=== PATIENT | female | born 2000 | race African-American/Black ===

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

== ENCOUNTER 2018-03-27 17:59 | Inpatient (IN) | payer OTHER ==
[~2018-03-27] VITALS: Ht 180.3 cm; Wt 103.4 kg
--- NOTE | 2018-03-27 18:04 | ER Report ---
History and Physical Time Seen By MD: 18:03 HPI/TALON CHIEF COMPLAINT: Menstrual cycle for 1 year HISTORY OF PRESENT ILLNESS: This is a 17-year-old female who presents to the emergency department for a menstrual cycle for 1 year. Patient states that she's had a heavy menstrual cycle bleeding, every day for one year. States that in February she became somewhat lightheaded and dizzy and is progressively getting worse. Today she states that she just wants to know what is wrong, she still has the dizziness and lightheadedness. Mild loose stools, she also states she has joint pain. She states that this happened before and [employer] gave her Blaine. She denies fevers, chest pain, shortness of breath, abdominal pain. No rashes or fevers. The patient has been in the [place] for about 15 months, she is from [place] studying at the [employer] [place]. REVIEW OF SYSTEMS: Constitutional: No fever, no chills. Eyes: No discharge. ENT: No sore throat. Cardiovascular: No chest pain, no palpitations. Respiratory: No cough, no shortness of breath. Gastrointestinal: No abdominal pain, no vomiting. ERRAND RUNNER: As above. Genitourinary: No hematuria. Musculoskeletal: No back pain. Skin: No rashes. Neurological: No headache. Allergies: Coded Allergies: No Known Allergies (Verified Allergy, Unknown, 03/27/18) Home Meds No Active Prescriptions or Reported Meds Past Medical/Surgical History The patient has no significant past medical or surgical history. Reviewed Nurses Notes: Yes Constitutional Vital Sign - Last 24 Hours 03/27/18 03/27/18 03/27/18 03/27/18 17:59 18:13 18:24 18:29 Temp 97.9 Pulse 108 101 102 Resp 13 B/P (MAP) 135/75 (95) 135/75 Pulse Ox 97 96 97 O2 Delivery Room Air Room Air Room Air 03/27/18 03/27/18 03/27/18 03/27/18 18:30 18:59 19:00 19:05 Pulse 99 98 B/P (MAP) 114/74 (87) 110/71 (84) Pulse Ox 95 96 O2 Delivery Room Air 03/27/18 03/27/18 03/27/18 19:35 20:00 20:05 Pulse 102 95 B/P (MAP) 101/73 (82) Pulse Ox 95 97 Physical Exam General Appearance: The patient is alert, has no immediate need for airway protection and no signs of toxicity. Eyes: Pupils equal and round, pale conjunctiva, no injection. ENT, Mouth: Mucous membranes are moist. Respiratory: There are no retractions, lungs are clear to auscultation. Cardiovascular: Regular rate and rhythm, no murmurs, clicks or rubs. Gastrointestinal: Abdomen is soft and non tender, no masses, bowel sounds normal. Neurological: Alert and oriented 4. Moving all extremities. Following all commands. No focal neuro deficits. Skin: Warm and dry, no rashes. Musculoskeletal: Neck is supple non tender. Extremities are nontender, nonswollen and have full range of motion. DIFFERENTIAL DIAGNOSIS: After history and physical exam differential diagnosis was considered for sickle cell disease, polycythemia, abdominal pain in a female including but not limited to ovarian cyst, pelvic inflammatory disease, ovarian torsion, urinary tract infection, and appendicitis. Medical Decision Making Data Points Result Diagram: 03/27/18 1849 03/27/18 1849 Laboratory Hematology Test 03/27/18 18:03 03/27/18 18:49 Urine Color Yellow Urine Clarity Clear Urine pH 6.0 pH (4.8-9.5) Urine Specific [place] 1.025 Urine Protein Negative mg/dL (NEGATIVE) Urine Glucose (UA) Negative mg/dL (NEGATIVE) Urine Ketones Negative mg/dL (NEGATIVE) Urine Blood Moderate (NEGATIVE) Urine Nitrite Negative (NEGATIVE) Urine Bilirubin Negative (NEGATIVE) Urine Urobilinogen 4.0 mg/dL (0.2-1.9) Urine Leukocyte Esterase Negative (NEGATIVE) Urine RBC 8 /HPF (0-2/HPF) Urine WBC 1 /HPF (0-5/HPF) Urine Squamous Epithelial Cells Many /LPF (</=FEW) Urine Bacteria Negative /HPF (NONE-FEW) Urine Mucus Few /HPF (NONE-FEW) Red Blood Count 2.77 M/uL (4.17-5.56) Mean Corpuscular Volume 60.8 fL (80.0-96.0) Mean Corpuscular Hemoglobin 18.2 pg (26.0-33.0) Mean Corpuscular Hemoglobin Concent 30.0 g/dL (32.0-36.0) Red Cell Distribution Width 19.9 % (11.5-14.5) Mean Platelet Volume 8.5 fL (7.2-11.1) Neutrophils (%) (Auto) 60.7 % (39.4-72.5) Lymphocytes (%) (Auto) 29.1 % (17.6-49.6) Monocytes (%) (Auto) 8.2 % (4.1-12.4) Eosinophils (%) (Auto) 0.9 % (0.4-6.7) Basophils (%) (Auto) 1.1 % (0.3-1.4) Nucleated RBC Relative Count (auto) 0.1 /100WBC Neutrophils # (Auto) 4.0 K/uL (2.0-7.4) Lymphocytes # (Auto) 1.9 K/uL (1.3-3.6) Monocytes # (Auto) 0.5 K/uL (0.3-1.0) Eosinophils # (Auto) 0.1 K/uL (0.0-0.5) Basophils # (Auto) 0.1 K/uL (0.0-0.1) Nucleated RBC Absolute Count (auto) 0.01 K/uL Peripheral Blood Smear Yes Y/N Sodium Level 137 mmol/L (137-145) Potassium Level 3.9 mmol/L (3.5-5.0) Chloride Level 111 mmol/L (98-107) Carbon Dioxide Level 20 mmol/L (22-31) Blood Urea Nitrogen 15 mg/dl (7-18) Creatinine 0.80 mg/dl (0.52-1.04) Glomerular Filtration Rate Calc > 60.0 Random Glucose 112 mg/dl (75-110) Calcium Level 8.8 mg/dl (8.4-10.2) Total Bilirubin 0.3 mg/dl (0.2-1.3) Aspartate Amino Transf (AST/SGOT) 27 U/L (0-35) Alanine Aminotransferase (ALT/SGPT) 24 U/L (0-56) Alkaline Phosphatase 60 U/L (0-126) Total Protein 7.1 g/dl (6.3-8.2) Albumin 4.1 g/dl (3.5-5.0) Human Chorionic Gonadotropin, Qual Negative (NEGATIVE) Chemistry Test 03/27/18 18:03 03/27/18 18:49 Urine Color Yellow Urine Clarity Clear Urine pH 6.0 pH (4.8-9.5) Urine Specific [place] 1.025 Urine Protein Negative mg/dL (NEGATIVE) Urine Glucose (UA) Negative mg/dL (NEGATIVE) Urine Ketones Negative mg/dL (NEGATIVE) Urine Blood Moderate (NEGATIVE) Urine Nitrite Negative (NEGATIVE) Urine Bilirubin Negative (NEGATIVE) Urine Urobilinogen 4.0 mg/dL (0.2-1.9) Urine Leukocyte Esterase Negative (NEGATIVE) Urine RBC 8 /HPF (0-2/HPF) Urine WBC 1 /HPF (0-5/HPF) Urine Squamous Epithelial Cells Many /LPF (</=FEW) Urine Bacteria Negative /HPF (NONE-FEW) Urine Mucus Few /HPF (NONE-FEW) White Blood Count 6.6 k/uL (4.5-11.0) Red Blood Count 2.77 M/uL (4.17-5.56) Hemoglobin 5.0 g/dL (12.0-16.0) Hematocrit 16.8 % (34.0-47.0) Mean Corpuscular Volume 60.8 fL (80.0-96.0) Mean Corpuscular Hemoglobin 18.2 pg (26.0-33.0) Mean Corpuscular Hemoglobin Concent 30.0 g/dL (32.0-36.0) Red Cell Distribution Width 19.9 % (11.5-14.5) Platelet Count 439 K/uL (150-450) Mean Platelet Volume 8.5 fL (7.2-11.1) Neutrophils (%) (Auto) 60.7 % (39.4-72.5) Lymphocytes (%) (Auto) 29.1 % (17.6-49.6) Monocytes (%) (Auto) 8.2 % (4.1-12.4) Eosinophils (%) (Auto) 0.9 % (0.4-6.7) Basophils (%) (Auto) 1.1 % (0.3-1.4) Nucleated RBC Relative Count (auto) 0.1 /100WBC Neutrophils # (Auto) 4.0 K/uL (2.0-7.4) Lymphocytes # (Auto) 1.9 K/uL (1.3-3.6) Monocytes # (Auto) 0.5 K/uL (0.3-1.0) Eosinophils # (Auto) 0.1 K/uL (0.0-0.5) Basophils # (Auto) 0.1 K/uL (0.0-0.1) Nucleated RBC Absolute Count (auto) 0.01 K/uL Peripheral Blood Smear Yes Y/N Glomerular Filtration Rate Calc > 60.0 Calcium Level 8.8 mg/dl (8.4-10.2) Total Bilirubin 0.3 mg/dl (0.2-1.3) Aspartate Amino Transf (AST/SGOT) 27 U/L (0-35) Alanine Aminotransferase (ALT/SGPT) 24 U/L (0-56) Alkaline Phosphatase 60 U/L (0-126) Total Protein 7.1 g/dl (6.3-8.2) Albumin 4.1 g/dl (3.5-5.0) Human Chorionic Gonadotropin, Qual Negative (NEGATIVE) Urinalysis Test 03/27/18 18:03 Urine Color Yellow Urine Clarity Clear Urine pH 6.0 pH (4.8-9.5) Urine Specific [place] 1.025 Urine Protein Negative mg/dL (NEGATIVE) Urine Glucose (UA) Negative mg/dL (NEGATIVE) Urine Ketones Negative mg/dL (NEGATIVE) Urine Blood Moderate (NEGATIVE) Urine Nitrite Negative (NEGATIVE) Urine Bilirubin Negative (NEGATIVE) Urine Urobilinogen 4.0 mg/dL (0.2-1.9) Urine Leukocyte Esterase Negative (NEGATIVE) Urine RBC 8 /HPF (0-2/HPF) Urine WBC 1 /HPF (0-5/HPF) Urine Squamous Epithelial Cells Many /LPF (</=FEW) Urine Bacteria Negative /HPF (NONE-FEW) Urine Mucus Few /HPF (NONE-FEW) EKG/Imaging EKG Interpretation 12 lead EKG: Time of EKG 1826. Rhythm: Sinus tachycardia, ventricular rate 102 bpm. Winfred: normal QRS: normal ST segments: No ST depression or elevation identified. ED Course/Re-evaluation Clinical Indication for ER IV: Hydration, IV Access ED Course The patient was admitted to room. A history and physical obtained. Differential diagnoses were considered. An IV was started. A CBC, CMP and UA were collected. EKG showing sinus tachycardia. A 1 L normal saline bolus was given. CBC showing RBC is 2.77, hemoglobin and hematocrit 5.0 and 16.8, MCV 60.8, MCH 18.2, chemistry unremarkable, negative hCG, unremarkable UA. I did review the critical hemoglobin and hematocrit results with the patient, as the patient is seemingly more symptomatic, when I washed her walk from the bathroom to the gurney she seemed unsteady, I did ultimately make the recommendation of a hospital admission. The patient was typed and screened. Dr. Cornelio Johnson did come and evaluate the patient, the patient is agreeable to an admission. Patient will be admitted to the medical floor for anemia of chronic blood loss, I did tell her I'm also concerned about sickle cell disease, they will were kind differentiating once she is admitted. 03/27/2018 7:37:27 pm I did speak with Dr. Johnson, the hospitalist consumer loan underwriter regarding the patient's case, he will be coming down to speak with patient about a possible admission. 03/27/2018 8:50:[address] Katlin Johnson has accepted the patient into the hospitalist services. Decision to Disposition Date: Mar 27, 2018 Decision to Disposition Time: 20:36 Depart Departure Latest Vital Signs Vital Signs Date Time Temp Pulse Resp B/P (MAP) Pulse Ox O2 Delivery O2 Flow Rate FiO2 03/27/18 20:05 95 97 03/27/18 20:00 101/73 (82) 03/27/18 18:59 Room Air 03/27/18 18:24 97.9 13 Impression: Primary Impression: Anemia Condition: Improved Disposition: Admitted from ER New Scripts No Active Prescriptions or Reported Meds Problem Qualifiers Primary Impression: Anemia Anemia type: iron deficiency Iron deficiency anemia type: chronic blood loss Qualified Codes: D50.0 - Iron deficiency anemia secondary to blood loss (chronic) WAYNE BONILLA-BC Mar 27, 2018 18:04
[2018-03-27] MEDS ORDERED: NS(*) 0.9% 1000 ML BAG 1,000 ML IV ONE (18:20)
--- NOTE | 2018-03-27 18:51 | EKG ---
[place] [facility] [place] NAME: BRUNO PRITCHARDGBU : [id number] MR: [id number] V: [id number] EXAM DATE: ORDERING PHYSICIAN: WAYNE BONILLA TECHNOLOGIST: LIZETTE Test Reason : LIGHT HEADEDNESS Blood Pressure : / mmHG Vent. Rate : 102 BPM Atrial Rate : 102 BPM P-R Int : 184 ms QRS Dur : 072 ms QT Int : 364 ms P-R-T Axes : 056 043 058 degrees QTc Int : 474 ms Sinus tachycardia Otherwise normal ECG No previous ECGs available Confirmed by KORINA ORTIZ ([id number]) on 03/28/2018 6:51:13 AM Referred By: MARIZOL Confirmed By:KORINA ORTIZ
[2018-03-27 19:01] LABS: PLATELET COUNT, AUTOMATED 439 K/uL (150-450)
[2018-03-27] MEDS ORDERED: ACETAMINOPHEN 325 MG TAB PO ONE (19:50)
[2018-03-27 21:04] VITALS: BP 112/67
--- NOTE | 2018-03-27 21:21 | History & Physical ---
History of Present Illness History of Present Illness 17yo nulliparous female with a h/o iron deficiency and heavy menses who was told to go to the ER by her parents for lightheadedness and dizziness. In 2017, she was told that she was iron deficient. She was having heavy menses then. She was given some hormones, that stopped her menses for quite awhile. She took evening primrose which restarted her menses over a month ago. She then started having menses daily. She took evening primrose again and the menses became heavier. She has continued to have menses daily, which now require 9-12 pads/day. She has been getting lightheaded with standing and sometimes falling to the ground. She denies LOC. She reports frequent, loose, BM for almost two months. Possibly having up to 6 BM/day. She has some intermittent nausea/mild leg swelling bilaterally/wrist and ankle pain bilaterally. She denies abdominal pain. She denies a h/o sickle cell or thallesemia. She denies recent NSAIDs or supplements use. Her mother has diabetes. Her siblings have no major medical problems. History Problems: (1) Anemia Status: Acute Home Meds No Active Prescriptions or Reported Meds Allergies: Coded Allergies: No Known Allergies (Verified Allergy, Unknown, 03/27/18) Other Social/Family Hx She is a biology student at . She is from [place] and has been in [place] since 2017. No tobacco use. She drinks alcohol on weekends, occasionally. Hx Alcohol Use: No Review of Systems All Systems Reviewed/Normal: Yes, Except as Noted Exam Vital Signs Vital Signs Date Time Temp Pulse Resp B/P (MAP) Pulse Ox O2 Delivery O2 Flow Rate FiO2 03/27/18 20:30 111/78 (89) 03/27/18 20:10 93 97 03/27/18 18:59 Room Air 03/27/18 18:24 97.9 13 General Appearance: Alert, Awake, No Acute Distress Cardiovascular: Regular Rate and Rhythm Respiratory: Clear to Auscultation GI: Abd Soft and Non-Tender (No hepatosplenomegally) : Other (Defer exam until a female nurse is available.) Musculoskeletal: Other (No wrist/ankle swelling or pain with palpation/passive ROM.) Extremities: No Edema Medical Decision Making Data Points Result Diagram: 03/27/18184803/27/181848 Item Value Date Time Mean Corpuscular Volume 60.8 fL L 03/27/181848 Red Cell Distribution Width 19.9 % H 03/27/181848 Neutrophils (%) (Auto) 60.7 % 03/27/181848 Lymphocytes (%) (Auto) 29.1 % 03/27/181848 Monocytes (%) (Auto) 8.2 % 03/27/181848 Human Chorionic Gonadotropin, Qual Negative 03/27/181848 Total Bilirubin 0.3 mg/dl 03/27/18 184 Aspartate Amino Transf (AST/SGOT) 27 U/L 03/27/18 184 Alanine Aminotransferase (ALT/SGPT) 24 U/L 03/27/18 184 Alkaline Phosphatase 60 U/L 03/27/18 184 Urine Urobilinogen 4.0 mg/dL H 03/27/18 1803 Urine Leukocyte Esterase Negative 03/27/18 1803 Urine RBC 8 /HPF 03/27/18 1803 Urine WBC 1 /HPF 03/27/18 1803 Urine Blood Moderate 03/27/18 1803 Urine Squamous Epithelial Cells Many /LPF H 03/27/18 1803 Urine Bacteria Negative /HPF 03/27/18 1803 Urine Mucus Few /HPF 03/27/18 1803 Assessment and Plan Problems: (1) Microcytic anemia Status: Acute Assessment & Plan: She presented with daily menses requiring 9-12 pads/day and near syncope with standing for about a month. Her heart rate is in the 90's to low 100's. BP is wnl. Hgb is 5. She denies any h/o sickle cell disease or thalassemia. Dr. Bender recommended starting Provera 10mg a day for a 30 days and follow up with Gynecology in 1-2 weeks. She will be transfused 2 units of PRBC, started on Provera, and have iron studies/reticulocyte count/ferritin/B12/folate/LDH/haptoglobin/occult blood in stool checked. Will do a superficial vaginal exam when there is a female nurse available. Venous Thromboembolism Antithrombotics Is Pt On Any Antithrombotics?: No Exam Sepsis Risk: Possible Sepsis Risk KORINA ORTIZ MD Mar 27, 2018 21:21
[2018-03-27] MEDS ORDERED: [UNRECOGNIZED DRUG - CODE] PO (22:03)
[2018-03-27] MEDS: medroxyPROGES ACE 10 MG TAB PO SCH (22:06)
[2018-03-27 22:31] VITALS: BP 103/71
[2018-03-27] MEDS: NS(*) 0.9% 1000 ML BAG 1,000 ML IV PRN (22:42)
[2018-03-27 22:50] VITALS: BP 109/64
[2018-03-27] MEDS: ACETAMINOPHEN 500 MG TAB PO PRN (23:01)
[2018-03-28] VITALS (11 sets, daily range): BP systolic 94–121; BP diastolic 52–84; Ht 180.3 cm; Wt 103.4 kg
--- NOTE | 2018-03-28 02:37 | NUR ---
2 units PRBCs infused. Pt. tolerated procedure well. VS stable. No s/s of distress or allergic reactions observed or voiced. Call light within reach. Will continue to monitor.
[2018-03-28 06:03] LABS: PLATELET COUNT, AUTOMATED 387 K/uL (150-450)
[2018-03-28 09:41] LABS: INR 1.01
[2018-03-28] MEDS: ACETAMINOPHEN 500 MG TAB PO PRN (09:57)
[2018-03-28] MEDS: FERROUS SULFATE 325 MG TAB PO SCH ×2 (09:58→17:14)
[2018-03-28] MEDS ORDERED: ACETAMINOPHEN 325 MG TAB PO PRN (10:05)
[2018-03-28] MEDS ORDERED: PROCHLORPERAZINE MAL 5 MG TAB PO PRN (10:10)
--- NOTE | 2018-03-28 11:03 | Hospitalist Progress Note ---
Subjective Progress Notes Subjective She was admitted with Microcytic anemia. She reports some improvement in vaginal bleeding this morning. She does have headache and nausea. Patient Complains of: Cardiovascular: No: Chest Pain Respiratory: Cough; No: Shortness of Breath Gastrointestinal: Nausea Physical Exam Vital Signs Date Time Temp Pulse Resp B/P (MAP) Pulse Ox O2 Delivery O2 Flow Rate FiO2 03/28/18 08:51 97 03/28/18 08:51 98.4 92 16 113/66 (82) Room Air Intake and Output 03/28/18 00:00 Intake Total 1000 ml Balance 1000 ml IV Total 1000 ml # Voids 1 General Appearance: Alert, Awake, No Acute Distress, Afebrile Neuro: No Gross deficits Cardiovascular: Regular Rate and Rhythm Respiratory: No Respiratory Distress, Clear to Auscultation GI: Soft and Non-Tender Extremities: Warm, Perfused; No Edema Psych: Alert & Oriented X3, Appropriate Mood & Affect Result Diagram: 03/28/18 0839 03/28/18 0540 Assessment and Plan Problems: (1) Microcytic anemia Status: Acute Assessment & Plan: She presented with daily menses requiring 9-12 pads/day and near syncope with standing for about a month. Hgb was 5 at admission. She veronica es any h/o sickle cell disease or thalassemia. Dr. Bender recommended starting Provera 10mg a day for a 30 days and follow up with Gynecology in 1-2 weeks. She was transfused 2 units of PRBC upon admission, started on Provera, and have iron studies/reticulocyte count/ferritin/B12/folate/LDH/haptoglobin/occult blood in stool checked. Her Hgb is 6.6 this morning. She will be transfused another un it of PRBC. Will consult infectious disease about possible Malaria causes. She was started on oral iron supplement. (2) Vaginal bleeding Status: Acute Assessment & Plan: She will get transvaginal ultrasound today. Bleeding has decreased with Provera. Exam Sepsis Risk: No Definite Risk BEATRICE JAY Mar 28, 2018 11:03
[2018-03-28] MEDS ORDERED: NS(*) 0.9% 250 ML BAG 250 ML ONE (11:04)
--- NOTE | 2018-03-28 14:02 | RADIOLOGY IMAGING REPORT ---
FACILITY: [facility] [place] PATIENT NAME: Carito Segundo : 2000 MR: [id number] V: [id number] EXAM DATE: ORDERING PHYSICIAN: BEATRICE JYA [place]CHNOLOGIST: [place] [facility] [place] Car[place] : 2000 Visit/Account:[id number] Date of Sevice: 03/28/2018 EXAMINATION: Ultrasound pelvis transabdominal HISTORY: Vaginal bleeding. LMP 03/05/2018. COMPARISON: None. FINDINGS: Uterus: Anteverted; 6.9 cm length x 4.5 cm transverse x 3.7 cm AP. Myometrium: Negative. Endometrium: 13 mm in greatest double thickness. Homogeneous without focal lesion. Cervix: Negative. Ovaries: Right ovary 4.5 x 4.8 x 2.4 cm, left ovary 3.6 x 3.4 x 2.6 cm. Right ovarian volume is 27.5 mL, left ovarian volume is 16.4 mL. There are small peripheral follicles in both ovaries. Blood flow is documented in each ovary by Doppler ultrasound. Normal Doppler arterial and venous wav eforms to both ovaries. Adnexa: Negative. Free pelvic fluid: None. IMPRESSION: 1. No focal uterine or endometrial abnormality visualized. 2. Ovarian appearance is suggestive of polycystic ovarian syndrome, although the ovaries are not as enlarged as typically seen. Report Dictated By: Tori Samuels MD at 03/28/2018 1:52 PM Report E-Signed By: Tori Samuels MD at 03/28/2018 1:58 PM WSN:[id number]
[2018-03-28 15:10] LABS: PLATELET COUNT, AUTOMATED 430 K/uL (150-450)
[2018-03-28] MEDS: medroxyPROGES ACE 10 MG TAB PO SCH (20:30)
[2018-03-29 02:38] VITALS: BP 110/75
[2018-03-29] MEDS: NS(*) 0.9% 1000 ML BAG 1,000 ML IV PRN (02:43)
[2018-03-29 06:42] LABS: PLATELET COUNT, AUTOMATED 437 K/uL (150-450)
[2018-03-29] MEDS ORDERED: INFLUENZA VIRUS VAC 0.5ML SYR IM ONLY ONE ×2 (09:00→14:39)
[2018-03-29] MEDS: FERROUS SULFATE 325 MG TAB PO SCH (09:01)
[2018-03-29 09:41] VITALS: BP 118/74
--- NOTE | 2018-03-29 11:05 | Hospitalist Progress Note ---
Subjective Progress Notes Subjective She was admitted with severe vaginal bleeding and a low hemoglobin. She reports improvement in symptoms this morning. Bleeding has now resolved with Provera. Joint pain and nausea improved today. Patient Complains of: Cardiovascular: No: Chest Pain Respiratory: No: Shortness of Breath Physical Exam Vital Signs Date Time Temp Pulse Resp B/P (MAP) Pulse Ox O2 Delivery O2 Flow Rate FiO2 03/29/18 09:41 97.5 95 24 118/74 (89) 100 Room Air Intake and Output 03/29/18 07:00 Intake Total 1936 ml Balance 1936 ml Intake Oral 436 ml IV Total 1000 ml Blood Product 500 ml # Voids 7 General Appearance: Alert, Awake, No Acute Distress, Afebrile Neuro: No Gross deficits Cardiovascular: Regular Rate and Rhythm Respiratory: No Respiratory Distress, Clear to Auscultation GI: Soft and Non-Tender Psych: Alert & Oriented X3, Appropriate Mood & Affect Result Diagram: 03/29/1839 03/29/18538 Assessment and Plan Problems: (1) Microcytic anemia Status: Acute Assessment & Plan: She presented with daily menses requiring 9-12 pads/day and near syncope with standing for about a month. Hgb was 5 at admission. She denies any h/o sickle cell disease or thalassemia. Dr. Bender recommended starting Provera 10mg a day for a 30 days and follow up with Gynecology in 1-2 weeks. She was transfused 3 units of PRBC upon admission, started on Provera. Her Hgb is 9.1 this morning. We are awaiting lab results for Malaria causes. She was started on oral iron supplement. (2) Vaginal bleeding Status: Acute Assessment & Plan: She did get pelvic ultrasound 03/28. It was consistent with Polycystic Ovarian Syndrome. Bleeding has now stopped with Provera. She will continue Provera until she can get appointment follow up with Dr. Guzmán. Exam Sepsis Risk: No Definite Risk BEATRICE JAY Mar 29, 2018 11:05
[2018-03-29] MEDS ORDERED: MEDR10TA65 PO (14:10)
[2018-03-29] MEDS ORDERED: FERR-53 PO (14:10)
--- NOTE | 2018-03-29 14:21 | Hospitalist Depart ---
Discharge Summary Reason for Hosp/Final Diag: (1) Microcytic anemia Status: Acute Hospital Course & Plan: She presented with daily menses requiring 9-12 pads/day and near syncope with standing for about a month. Hgb was 5 at admission. She denies any h/o sickle cell disease or thalassemia. Dr. Bender recommended st arting Provera 10mg a day for a 30 days and follow up with Gynecology in 1-2 weeks. She was transfused 3 units of PRBC upon admission, started on Provera. Her Hgb is 9.1 this morning. We did test for Malaria and was negative since she had recently visited [facility]. She was started on oral iron supplement. She will follow up with Ximena Arango NP at [facility], then will need a referral to Dr. Marley Guzmán. (2) Vaginal bleeding Status: Acute Hospital Course & Plan: She did get pelvic ultrasound 03/28. It was consistent with Polycystic Ovarian Syndrome. Bleeding has now stopped with Provera. She will continue Provera for 7 more days (for total of 10 day treatment) until she can get appointment follow up with Dr. Guzmán. Departure Latest Vital Signs Vital Signs 03/29/18 09:41 Temp 97.5 Pulse 95 Resp 24 B/P (MAP) 118/74 (89) Pulse Ox 100 O2 Delivery Room Air Weight (Pounds): 228 Result Diagram: 03/29/18 0539 03/29/18 0539 Condition: Improved Discharge: Home, Self Care Discharge Instructions Home Meds Active Scripts Ferrous Sulfate (FERROUS SULFATE) 325 Mg Tablet, 325 MG PO DAILY, #30 TAB Prov:BEATRICE JAY 03/29/18 Medroxyprogesterone Acetate (MEDROXYPROGESTERONE ACETATE) 10 Mg Tablet, 10 MG PO HS, #7 TAB Prov:BEATRICE JAY 03/29/18 Discontinued Reported Medications Evening [place] Oil (EVENING PRIMROSE OIL) 500 Mg Capsule, 1000 MG PO TID, CAPSULE 03/27/18 Diet: Regular Activity: As Tolerated Special Instructions: Follow up with [facility] in one week. Follow up with Dr. Marley Guzmán for bleeding. Take Iron tablet daily. Copies to: XIMENA ARANGO; MARLEY GUZMÁN MD ; Venous Thromboembolism Antithrombotics Is Pt On Any Antithrombotics?: No BEATRICE JAY Mar 29, 2018 14:21
--- NOTE | 2018-03-29 14:58 | Hospitalist Consultation ---
History of Present Illness Requesting Physician Dr. Fiona Ventura Reason for Consult Excessive vaginal bleeding Chief Complaint Anemia and vaginal bleeding History of Present Illness 17-year-old virginal G0 was admitted through the emergency department on 03/27/18 for severe anemia, presumably due to excessive vaginal bleeding. He presented with a hemoglobin of 5, and symptoms of lightheadedness and dizziness. She is originally from [place]. She moved to [place] in 10/2016 to study at . She is studying psychology and biology, with aspirations to go to medical school. She is not in a relationship and has never been sexually active. She reports menarche at 9 years old. When they first started, she would have monthly menses lasting 5 days in total. These menses have always been heavy. She then went through a full year of no menses in 2015. During that time, her mother took her to a doctor who recommended evening primrose. She reports this started her menses again. However, in 2016 she started having almost daily bleeding. This bleeding has been extremely heavy when it occurs. She will go through 9-12 super pads daily. She reports having this amount of bleeding almost every day since 10/2016. She has seen a provider at [facility], but was not given any specific therapy that she can remember. Since admission, she has been on Provera 10 mg per day. This has stopped her bleeding for now. She and her family are reluctant to use hormone therapy to help with her bleeding. She does not use tobacco, nor does she have a family history of stroke. She does have a history of migraines with aura when she was in high school (in 2015). She had an abdominal ultrasound performed during this admission which did not reveal any obvious anatomical concerns such as fibroids. PSH: None PMH: Migraines with aura in 2016 Allergies: None Medications: None Social history: Patient denies tobacco or drug use. She drinks alcohol once every week or 2. She has never had any issues with this. History Home Meds Active Scripts Ferrous Sulfate (FERROUS SULFATE) 325 Mg Tablet, 325 MG PO DAILY, #30 TAB Prov:BEATRICE JAY [facility] 03/29/18 Medroxyprogesterone Acetate (MEDROXYPROGESTERONE ACETATE) 10 Mg Tablet, 10 MG PO HS, #7 TAB Prov:BEATRICE JAY [facility] 03/29/18 Discontinued Reported Medications Evening [place] Oil (EVENING PRIMROSE OIL) 500 Mg Capsule, 1000 MG PO TID, CAPSULE 03/27/18 Allergies: Coded Allergies: No Known Allergies (Verified Allergy, Unknown, 03/27/18) Hx Smoking: No Smoking Status: Never Smoker Exposure to Second Hand Smoke?: No Caffeine Intake: Tea Caffeine/Cups Per Day: 6 Hx Alcohol Use: No Hx Substance Use Disorder: No History of IV Drug Use: No Review of Systems Constitutional: No Fever Neurological: No Syncope Eyes: No Vision Change Cardiovascular: No Chest Pain Respiratory: No Shortness of Breath, No Cough Gastrointestinal: No Nausea, No Vomiting, No Diarrhea Genitourinary: No Dysuria Musculoskeletal: No Pain Psychiatric: No Depression, No Anxiety Exam Vital Signs Vital Signs Date Time Temp Pulse Resp B/P (MAP) Pulse Ox O2 Delivery O2 Flow Rate FiO2 03/29/18 09:41 97.5 95 24 118/74 (89) 100 Room Air General Appearance: Alert, Awake, No Acute Distress Cardiovascular: Normal Rhythm & Peripheral Pulses Respiratory: No Respiratory Distress, Clear to Auscultation GI: Abd Soft and Non-Tender Extremities: Soft and Non Tender Integumentary: Skin Intact without Lesion / Mass Psych: Alert & Oriented X3, Appropriate Mood & Affect Medical Decision Making Data Points Result Diagram: 03/29/1853803/29/18538 EKG / Imaging Imaging PATIENT NAME: Carito Segundo : 2000 MR: [id number] V: [id number] EXAM DATE: ORDERING PHYSICIAN: BEATRICE JAY TECHNOLOGIST: Location: [facility] Patient: Carito Segundo : 2000 Visit/Account:[id number] Date of Sevice: 03/28/2018 EXAMINATION: Ultrasound pelvis transabdominal HISTORY: Vaginal bleeding. LMP 03/05/2018. COMPARISON: None. FINDINGS: Uterus: Anteverted; 6.9 cm length x 4.5 cm transverse x 3.7 cm AP. Myometrium: Negative. Endometrium: 13 mm in greatest double thickness. Homogeneous without focal lesion. Cervix: Negative. Ovaries: Right ovary 4.5 x 4.8 x 2.4 cm, left ovary 3.6 x 3.4 x 2.6 cm. Right ovarian volume is 27.5 mL, left ovarian volume is 16.4 mL. There are small peripheral follicles in both ovaries. Blood flow is documented in each ovary by Doppler ultrasound. Normal Doppler arterial and venous waveforms to both ovaries. Adnexa: Negative. Free pelvic fluid: None. IMPRESSION: 1. No focal uterine or endometrial abnormality visualized. 2. Ovarian appearance is suggestive of polycystic ovarian syndrome, although the ovaries are not as enlarged as typically seen. Report Dictated By: Tori Samuels MD at 03/28/2018 1:52 PM Report E-Signed By: Tori Samuels MD at 03/28/2018 1:58 PM Assessment and Plan Problems: (1) Vaginal bleeding Status: Acute Assessment & Plan: 17-year-old virginal G0 was admitted through the emergency department on 03/27/18 for severe anemia, presumably due to excessive vaginal bleeding. I had a long discussion with the patient about her diagnosis. There are no other obvious causes of her anemia. Currently, her bleeding has stopped with Provera 10 mg per day for the last 3 days. Upon discharge, I would recommend she complete a total of 10 days of the Provera. She would be an excellent candidate for a Mirena IUD. Due to her history of migraines with aura, I would be reluctant to initiate estrogen therapy. We also discussed the possibility of cyclical Provera if she does not want an IUD. Her ultrasound was reassuring. I will have her follow-up with [facility] initially. I would be happy to see her in clinic if my services are needed after that. (2) Microcytic anemia Status: Acute Copies to: KEKE PORTILLO ; Venous Thromboembolism Antithrombotics Is Pt On Any Antithrombotics?: No Exam Sepsis Risk: No Definite Risk CHRISTIAN GHOSH MD Mar 29, 2018 14:31
== END 2018-03-29 15:20 | disposition home or self-care (01) | DRG 812 ==
LOC: ER 18:34 → MED 20:41
PROVIDERS: ADMIT Internal Medicine; ATTEND Internal Medicine
PROC: 30233N1 Transfusion of Nonautologous Red Blood Cells into Peripheral Vein, Percutaneous Approach (ICD-10-PCS; principal; 2018-03-27)
DX: D50.0 Iron deficiency anemia secondary to blood loss (chronic) (principal); E28.2 Polycystic ovarian syndrome; N93.9 Abnormal uterine and vaginal bleeding, unspecified; Z23 Encounter for immunization
CPT/HCPCS: 36415; 36416; 76856; 81001; 82040; 82247; 82310; 82374; 82435; 82565; 82607; 82728; 82746; 82947; 82948; 83010; 83540; 83550; 83615; 84075; 84132; 84155; 84295; 84450; 84460; 84520; 84703; 85025; 85045; 85049; 85379; 85384; 85610; 85730; 86703; 86850; 86900; 86901; 86920; 87207; 90674; 93005; 96360; 99284; J7030; J7050; P9016

== ENCOUNTER 2018-06-19 10:29 | Emergency (ER) | payer OTHER ==
[2018-03-28 11:56] VITALS: Wt 103.4 kg
[~2018-06-19 10:29] MED LIST: FERR-53 PO; MEDR10TA65 PO; [UNRECOGNIZED DRUG - CODE] PO
[2018-06-19] MEDS ORDERED: LEVO1TAB68 (10:37)
[2018-06-19 10:54] LABS: PLATELET COUNT, AUTOMATED 325 K/uL (150-450)
--- NOTE | 2018-06-19 10:57 | EKG ---
FACILITY: [facility] PATIENT NAME: BRUNO RASMUSSEN : [birth year] MR: [id number] V: [id number] EXAM DATE: ORDERING PHYSICIAN: LC EDGAR TECHNOLOGIST: BENJAMIN Pace Reason : SOB Blood Pressure : / mmHG Vent. Rate : 083 BPM Atrial Rate : 083 BPM P-R Int : 184 ms QRS Dur : 078 ms QT Int : 358 ms P-R-T Axes : 066 051 063 degrees QTc Int : 420 ms Sinus rhythm Slight ST elevation diffusely - suspect early repolarization, but cannot exclude other causes When compared with ECG of 27-MAR-2018 18:27, No significant change was found Confirmed by BEL ALVARADO ([id number]) on 06/20/2018 4:47:44 AM Referred By: VON EDGAR Confirmed By:BEL ALVARADO
[2018-06-19] MEDS ORDERED: NS(*) 0.9% 50 ML BAG 50 ML ONE (11:04)
[2018-06-19] MEDS ORDERED: IOPAMIDOL 76% 150 ML INFUS BTL 150 ML ONE (11:04)
--- NOTE | 2018-06-19 11:09 | ER Report ---
History and Physical Time Seen By MD: 10:29 Hx. of Stated Complaint: PT REPORTS SOB AND PAIN IN CENTER OF HER CHEST. PT REPORTS SHE HAS ALSO HAD A COLD. PT REPORTS SHE WAS SENT FROM [facility] FOR R/O PE HPI/ROS CHIEF COMPLAINT: Chest pain shortness of breath HISTORY OF PRESENT ILLNESS: Patient is a 18-year-old female comes in with 30 days of intermittent chest pain and shortness of breath comes and goes patient has a known history of anemia for which she has been on blood replacement this is due to vaginal bleeding to anemia possible skin IUD was unable to perform this she's been on control pills for the last 30 days in the last 3 days she's noticed some parasternal mild pleuritic-type chest discomfort with associated shortness of breath worse when she lays flat better when she sits up no orthopnea no PND otherwise no exertional dyspnea no additional complaints noted as no history of blood clots or DVTs REVIEW OF SYSTEMS: Respiratory: No cough, dyspnea. Cardiovascular: chest pain, no palpitations. Gastrointestinal: No vomiting, no abdominal pain. Musculoskeletal: No back pain. Remainder of the 14 system rev: Yes Allergies: Coded Allergies: No Known Allergies (Verified Allergy, Unknown, 06/19/18) Home Meds Active Scripts Ferrous Sulfate (FERROUS SULFATE) 325 Mg Tablet, 325 MG PO DAILY, #30 TAB Prov:BEATRICE JAY [facility] 03/29/18 Reported Medications Levonorgestrel-Ethin Estradiol (Vienva-28 Tablet) 0.1 Mg-20 Mcg Tablet, QDAY 06/19/18 Discontinued Scripts Medroxyprogesterone Acetate (MEDROXYPROGESTERONE ACETATE) 10 Mg Tablet, 10 MG PO HS, #7 TAB Prov:BEATRICE JAY [facility] 03/29/18 Reviewed Nurses Notes: Yes Old Medical Records Reviewed: Yes Hx Smoking: No Smoking Status: Never Smoker Exposure to Second Hand Smoke?: No Hx Substance Use Disorder: No Hx Alcohol Use: No Constitutional Vital Sign - Last 24 Hours 06/19/18 06/19/18 06/19/18 10:30 10:33 11:00 Temp 97.8 Pulse 86 94 Resp 15 16 B/P (MAP) 121/73 121/73 (89) 104/75 (85) Pulse Ox 95 95 O2 Delivery Room Air Physical Exam General Appearance: The patient is alert, has no immediate need for airway protection and no current signs of toxicity. [ ] Eyes: Pupils equal and round no injection. Respiratory: Chest is non tender, lungs are clear to auscultation. Cardiac: regular rate and rhythm [ ] Gastrointestinal: Abdomen is soft and non tender, no masses, bowel sounds normal. Musculoskeletal: Neck: Neck is supple and non tender. Extremities have full range of motion and are non tender. Skin: No rashes or lesions. [ ] DIFFERENTIAL DIAGNOSIS: After history and physical exam differential diagnosis was considered for DVT pulmonary emboli myocarditis pericarditis Medical Decision Making Data Points Result Diagram: 06/19/18 1040 06/19/18 1040 Laboratory Hematology Test 06/19/18 00:00 06/19/18 10:40 Human Chorionic Gonadotropin, Qual Negative (NEGATIVE) Red Blood Count 4.69 M/uL (4.17-5.56) Mean Corpuscular Volume 79.2 fL (80.0-96.0) Mean Corpuscular Hemoglobin 24.8 pg (26.0-33.0) Mean Corpuscular Hemoglobin Concent 31.3 g/dL (32.0-36.0) Red Cell Distribution Width 25.1 % (11.5-14.5) Mean Platelet Volume 7.7 fL (7.2-11.1) Neutrophils (%) (Auto) 47.3 % (39.4-72.5) Lymphocytes (%) (Auto) 28.6 % (17.6-49.6) Monocytes (%) (Auto) 20.8 % (4.1-12.4) Eosinophils (%) (Auto) 1.8 % (0.4-6.7) Basophils (%) (Auto) 1.5 % (0.3-1.4) Nucleated RBC Relative Count (auto) 0.0 /100WBC Neutrophils # (Auto) 1.6 K/uL (2.0-7.4) Lymphocytes # (Auto) 1.0 K/uL (1.3-3.6) Monocytes # (Auto) 0.7 K/uL (0.3-1.0) Eosinophils # (Auto) 0.1 K/uL (0.0-0.5) Basophils # (Auto) 0.0 K/uL (0.0-0.1) Nucleated RBC Absolute Count (auto) 0.00 K/uL Peripheral Blood Smear Yes Y/N Sodium Level 138 mmol/L (137-145) Potassium Level 3.9 mmol/L (3.5-5.0) Chloride Level 109 mmol/L (98-107) Carbon Dioxide Level 20 mmol/L (22-31) Blood Urea Nitrogen 8 mg/dl (7-18) Creatinine 0.70 mg/dl (0.52-1.04) Glomerular Filtration Rate Calc > 60.0 Random Glucose 96 mg/dl (75-110) Calcium Level 9.3 mg/dl (8.4-10.2) Total Bilirubin 0.2 mg/dl (0.2-1.3) Aspartate Amino Transf (AST/SGOT) 113 U/L (0-35) Alanine Aminotransferase (ALT/SGPT) 51 U/L (0-56) Alkaline Phosphatase 64 U/L (0-126) Troponin I < 0.012 ng/ml Total Protein 8.0 g/dl (6.3-8.2) Albumin 4.6 g/dl (3.5-5.0) Chemistry Test 06/19/18 00:00 06/19/18 10:40 Human Chorionic Gonadotropin, Qual Negative (NEGATIVE) White Blood Count 3.4 k/uL (4.5-11.0) Red Blood Count 4.69 M/uL (4.17-5.56) Hemoglobin 11.6 g/dL (12.0-16.0) Hematocrit 37.1 % (34.0-47.0) Mean Corpuscular Volume 79.2 fL (80.0-96.0) Mean Corpuscular Hemoglobin 24.8 pg (26.0-33.0) Mean Corpuscular Hemoglobin Concent 31.3 g/dL (32.0-36.0) Red Cell Distribution Width 25.1 % (11.5-14.5) Platelet Count 325 K/uL (150-450) Mean Platelet Volume 7.7 fL (7.2-11.1) Neutrophils (%) (Auto) 47.3 % (39.4-72.5) Lymphocytes (%) (Auto) 28.6 % (17.6-49.6) Monocytes (%) (Auto) 20.8 % (4.1-12.4) Eosinophils (%) (Auto) 1.8 % (0.4-6.7) Basophils (%) (Auto) 1.5 % (0.3-1.4) Nucleated RBC Relative Count (auto) 0.0 /100WBC Neutrophils # (Auto) 1.6 K/uL (2.0-7.4) Lymphocytes # (Auto) 1.0 K/uL (1.3-3.6) Monocytes # (Auto) 0.7 K/uL (0.3-1.0) Eosinophils # (Auto) 0.1 K/uL (0.0-0.5) Basophils # (Auto) 0.0 K/uL (0.0-0.1) Nucleated RBC Absolute Count (auto) 0.00 K/uL Peripheral Blood Smear Yes Y/N Glomerular Filtration Rate Calc > 60.0 Calcium Level 9.3 mg/dl (8.4-10.2) Total Bilirubin 0.2 mg/dl (0.2-1.3) Aspartate Amino Transf (AST/SGOT) 113 U/L (0-35) Alanine Aminotransferase (ALT/SGPT) 51 U/L (0-56) Alkaline Phosphatase 64 U/L (0-126) Troponin I < 0.012 ng/ml Total Protein 8.0 g/dl (6.3-8.2) Albumin 4.6 g/dl (3.5-5.0) ED Course/Re-evaluation ED Course Medical decision making 18-year-old female concerning for potential PE she's been having this intermittent chest discomfort for the last month or so since starting control chest CT angiogram shows no evidence of patient has some diffuse bronchial wall thickening most likely of viral etiology EKG was unremarkable a survey so labs were normal diagnosis bronchitis viral Decision to Disposition Date: Jun 19, 2018 Decision to Disposition Time: 12:15 Depart Departure Latest Vital Signs Vital Signs Date Time Temp Pulse Resp B/P (MAP) Pulse Ox O2 Delivery O2 Flow Rate FiO2 06/19/18 11:00 94 16 104/75 (85) 95 06/19/18 10:30 97.8 Room Air Impression: Primary Impression: Viral upper respiratory illness Condition: Improved Disposition: HOME OR SELF-CARE Referrals: KEKE PORTILLO (PCP) 5 Days Patient Instructions: Upper Respiratory Infection (DC) LC EDGAR MD Jun 19, 2018 11:09
--- NOTE | 2018-06-19 12:11 | RADIOLOGY IMAGING REPORT ---
FACILITY: [facility] PATIENT NAME: Carito Segundo : 2000 MR: [id number] V: [id number] EXAM DATE: ORDERING PHYSICIAN: LC EDGAR TECHNOLOG[place]: [place] [facility] [place]: [place] : 2000 Visit/Account:[id number] Date of Sevice: 06/19/2018 CT CTA CHEST W & W/O CON COMPARISON: None. HISTORY: Chest pain with elevated d-dimer. TECHNIQUE: Axial CT angiography of the chest with intravenous contrast. Coronal and sagittal reform ats. Coronal MIP reconstructions were also created for further evaluation and interpretation. One of the following dose optimization techniques was utilized in the performance of this exam: auto mated exposure control; adjustment of the mA and/or kV according to patient size; or use of iterative reconstruction technique. Specific details can be referenced in the facility's radiology CT exam op erational policy. CONTRAST: 75 mL of IV [id number]. CT CHEST FINDINGS: CARDIAC: Unremarkable. MEDIASTINUM/MUNA: Unremarkable. No mass or significantly enlarged lymph nodes. VASCULATURE: Cardiac pulsation artifact in the ascending aorta. Bovine arch configuration, a normal vascular variant. Suboptimal pulmonary artery opacification. No evidence of acute pulmonary embolism to the lobar level. CHEST WALL: Unremarkable. No mass or axillary adenopathy. LUNGS/PLEURA: No significant pulmonary disease or pleural abnormality. There is no effusion or conso lidation. Mild diffuse bronchial wall thickening. BONES: Sclerotic lesion in the T8 vertebral body, likely a benign incidental finding. LIMITED ABDOMEN: Early excretion of contrast in the kidneys. OTHER: Negative. IMPRESSION: 1. There is no evidence of acute pulmonary embolus to the lobar arterial level. 2. Mild diffuse bronchial wall thickening suggestive of viral infection. No lung consolidation. Report Dictated By: Jose Fontenot at 06/19/2018 12:03 PM Report E-Signed By: Jose Fontenot at 06/19/2018 12:07 PM WSN:[id number]
[2018-06-19 12:20] VITALS: BP 113/69
== END 2018-06-19 12:20 | disposition home or self-care (01) ==
LOC: ER 10:49
DX: J06.9 Acute upper respiratory infection, unspecified (principal)
CPT/HCPCS: 71275; 84484; 84703; 85025; 93005; 99284; J7050; Q9967; 82040; 82247; 82310; 82374; 82435; 82565; 82947; 84075; 84132; 84155; 84295; 84450; 84460; 84520